=== PATIENT | female | born 1995 | race Two or more races ===

== ENCOUNTER 2023-08-01 20:20 | Emergency (ER) | payer OTHER ==
[~2023-08-01] VITALS: Ht 167.6 cm; Wt 54.4 kg
[2023-08-01] MEDS ORDERED: PRENATAL 19 CH1 EACH PO (20:29)
[2023-08-01] MEDS ORDERED: METOCLOPRAMIDE HCL 5 MG/ML VIAL IM STA (22:16)
[2023-08-01] MEDS ORDERED: PROMETHAZINE HCL 50 MG/ML AMPUL IM STA (22:17)
[2023-08-01] MEDS ORDERED: 0.9 % SODIUM CHLORIDE 1,000 ML IV STA (22:18)
[2023-08-01] MEDS ORDERED: FAMOtidine 10 MG/ML (4ML VIAL) IV PUSH STA (22:19)
[2023-08-02 00:14] LABS: PH,URINE 6.5 (5.0-8.0); URINE APPEARANCE Clear; URINE BILIRRUBIN Negative (NEGATIVE); URINE BLOOD Negative; URINE COLOR Yellow; URINE GLUCOSE Negative (NEGATIVE); URINE LEUKOCYTE Negative; URINE NITRATE Negative; URINE PROTEIN Negative (NEGATIVE)
[2023-08-02 00:18] LABS: URINE BACTERIA 166.2 uL (0.0-1933); URINE EPITHELIAL CELLS 9.7 uL (0.0-38.8); URINE RBC 3.7 uL (0.0-20.8); URINE WBC 13.1 uL (0.0-23.2)
[2023-08-02 00:19] LABS: HEMATOCRIT 37.8 % (36.0-45.00); HEMOGLOBIN 13.1 g/dL (12.0-15.00); MEAN CELL VOLUME 86.3 fL (80.00-100.00); MEAN CORPUSCULAR HEMOGLOBIN 29.9 pg (27.00-32.0); MEAN CORPUSCULAR HGB CONC 34.7 g/dl (32.0-36.0); PLATELET COUNT 252 K/uL (150-450); RED BLOOD COUNT 4.38 M/uL (4.00-6.00); RED CELL DISTRIBUTION WIDTH 13.8 % (11.5-14.5)
[2023-08-02 01:03] LABS: BILIRUBIN TOTAL 0.34 mg/dL (0.3-1.2); CALCIUM 9.9 mg/dL (8.5-10.1); CREATININE SERUM 0.53 mg/dL (0.55-1.02); GFR 139.44; GLOBULINA 3.7 G/DL (2.4-3.5); POTASSIUM 3.87 mEq/L (3.5-5.1); TOTAL PROTEIN 7.7 gm/dL (6.4-8.2)
[2023-08-02] MEDS ORDERED: ONDANSETRON ODT8 MG PO (03:12)
== END 2023-08-02 03:26 | disposition home or self-care (01) ==
LOC: ER 20:20
DX: O21.0 Mild hyperemesis gravidarum (principal); E86.0 Dehydration; Z3A.14 14 weeks gestation of pregnancy

== ENCOUNTER 2023-08-20 11:37 | Outpatient (CLI) | payer OTHER ==
[~2023-08-20 11:37] MED LIST: ONDANSETRON ODT8 MG PO; PRENATAL 19 CH1 EACH PO
== END 2023-08-20 11:39 | disposition home or self-care (01) ==
LOC: PRENATAL 11:37
PROVIDERS: ATTEND Obstetrics & Gynecology Maternal & Fetal Medicine
DX: Z76.1 Encounter for health supervision and care of foundling (principal)

== ENCOUNTER 2023-11-07 18:34 | Outpatient (CLI) | payer OTHER ==
[2023-11-07] MEDS ORDERED: CEFAZOLIN SODIUM 1,000 MG VIAL IV SCH (18:43)
[2023-11-07] MEDS ORDERED: TERBUTALINE SULFATE 1 MG/ML AMPUL SUBCUTANEO ONE (18:45)
[2023-11-07] MEDS ORDERED: RINGERS SOLUTION,LACTATED 1,000 ML IV SCH (18:45)
[2023-11-07 19:20] LABS: HEMATOCRIT 30.9 % (36.0-45.00); HEMOGLOBIN 10.8 g/dL (12.0-15.00); MEAN CELL VOLUME 87.1 fL (80.00-100.00); MEAN CORPUSCULAR HEMOGLOBIN 30.5 pg (27.00-32.0); PH,URINE 5.5 (5.0-8.0); PLATELET COUNT 223 K/uL (150-450); RED BLOOD COUNT 3.55 M/uL (4.00-6.00); RED CELL DISTRIBUTION WIDTH 12.9 % (11.5-14.5); URINE APPEARANCE Clear; URINE BILIRRUBIN Negative (NEGATIVE); URINE BLOOD Negative; URINE COLOR Yellow; URINE GLUCOSE Negative (NEGATIVE); URINE LEUKOCYTE Small; URINE NITRATE Negative; URINE PROTEIN Negative (NEGATIVE)
[2023-11-07 19:21] LABS: URINE BACTERIA 1637.9 uL (0.0-1933); URINE EPITHELIAL CELLS 34.3 uL (0.0-38.8); URINE RBC 2.2 uL (0.0-20.8); URINE WBC 80.8 uL (0.0-23.2)
== END 2023-11-08 23:10 | disposition home or self-care (01) ==
LOC: OBS/DEL 18:34
PROVIDERS: Obstetrics & Gynecology; ATTEND Obstetrics & Gynecology
DX: O26.893 Other specified pregnancy related conditions, third trimester (principal); R10.2 Pelvic and perineal pain; Z3A.28 28 weeks gestation of pregnancy

== ENCOUNTER 2023-12-12 21:39 | Outpatient (CLI) | payer OTHER ==
[2023-12-12] MEDS ORDERED: RINGERS SOLUTION,LACTATED 1,000 ML IV SCH (22:00)
[2023-12-12 22:28] LABS: HEMOGLOBIN 10.3 g/dL (12.0-15.00); MEAN CELL VOLUME 85.8 fL (80.00-100.00); MEAN CORPUSCULAR HEMOGLOBIN 29.5 pg (27.00-32.0); MEAN CORPUSCULAR HGB CONC 34.4 g/dl (32.0-36.0); PLATELET COUNT 210 K/uL (150-450); RED BLOOD COUNT 3.49 M/uL (4.00-6.00); RED CELL DISTRIBUTION WIDTH 12.4 % (11.5-14.5)
[2023-12-12 23:28] LABS: URINE APPEARANCE Clear; URINE BILIRRUBIN Negative (NEGATIVE); URINE BLOOD Negative; URINE COLOR Yellow; URINE GLUCOSE Negative (NEGATIVE); URINE KETONE Negative (NEGATIVE); URINE LEUKOCYTE Trace; URINE NITRATE Negative; URINE PROTEIN Negative (NEGATIVE)
[2023-12-12 23:31] LABS: URINE BACTERIA 219.1 uL (0.0-1933); URINE EPITHELIAL CELLS 12.3 uL (0.0-38.8); URINE RBC 3.3 uL (0.0-20.8); URINE WBC 18.9 uL (0.0-23.2)
[2023-12-12 23:38] LABS: URINE CAST 0.15 uL (0.0-1.40)
== END 2023-12-13 15:35 | disposition home or self-care (01) ==
LOC: OBS/DEL 21:39
PROVIDERS: Obstetrics & Gynecology; ATTEND Obstetrics & Gynecology
DX: O26.893 Other specified pregnancy related conditions, third trimester (principal); Z3A.33 33 weeks gestation of pregnancy; R10.2 Pelvic and perineal pain

== ENCOUNTER 2024-01-07 20:38 | Inpatient (IN) | payer OTHER ==
[~2024-01-07] VITALS: Ht 167.6 cm; Wt 2.3 kg
[2024-01-07 19:57] VITALS: BP 116/77
[2024-01-07] MEDS ORDERED: RINGERS SOLUTION,LACTATED 1,000 ML IV SCH (21:45)
[2024-01-07] MEDS ORDERED: MORPHINE SULFATE 4 MG/ML CARTRIDGE IV ONE (21:45)
[2024-01-07 22:01] LABS: URINE APPEARANCE Clear; URINE BILIRRUBIN Negative (NEGATIVE); URINE BLOOD Negative; URINE COLOR Yellow; URINE GLUCOSE Negative (NEGATIVE); URINE KETONE 15 (NEGATIVE); URINE LEUKOCYTE Negative; URINE NITRATE Negative; URINE PROTEIN Negative (NEGATIVE); URINE UROBILINOGEN 0.2 E.U./dl
[2024-01-07 22:04] LABS: URINE EPITHELIAL CELLS 7.7 uL (0.0-38.8); URINE WBC 13.9 uL (0.0-23.2)
[2024-01-07 22:05] LABS: HEMATOCRIT 31.4 % (36.0-45.00); HEMOGLOBIN 10.7 g/dL (12.0-15.00); MEAN CELL VOLUME 83.6 fL (80.00-100.00); MEAN CORPUSCULAR HEMOGLOBIN 28.4 pg (27.00-32.0); PLATELET COUNT 224 K/uL (150-450); RED BLOOD COUNT 3.75 M/uL (4.00-6.00); RED CELL DISTRIBUTION WIDTH 13.3 % (11.5-14.5)
[2024-01-07 22:07] LABS: URINE RBC 1.3 uL (0.0-20.8)
[2024-01-07 22:15] LABS: PARTIAL THROMBOPLASTIN TIME 27.3 SECONDS (22.0-34.0); PROTHROMBIN TIME 10.9 SECONDS (9.0-11.5)
[2024-01-07 22:16] LABS: CREATININE SERUM 0.45 mg/dL (0.55-1.02); GFR 167.13; POTASSIUM 3.57 mEq/L (3.5-5.1)
[2024-01-07 23:04] VITALS: BP 99/63
[2024-01-08 04:00] VITALS: BP 104/68
[2024-01-08 06:38] VITALS: BP 103/63; O2SAT 100
[2024-01-08 11:21] VITALS: BP 116/77
[2024-01-08 11:48] VITALS: BP 112/66; O2SAT 100
[2024-01-08 15:35] VITALS: BP 112/67
[2024-01-08] MEDS ORDERED: ERYTHROMYCIN BASE OPHT 1GM EACH TUBE OP ONE (16:12)
[2024-01-08] MEDS ORDERED: OXYTOCIN 10 UNITS/ML VIAL ONE (16:12)
[2024-01-08] MEDS ORDERED: CEFAZOLIN SODIUM 1,000 MG VIAL ONE (16:32)
[2024-01-08] MEDS ORDERED: OXYTOCIN 1,000 ML IV SCH (17:45)
[2024-01-08] MEDS ORDERED: MORPHINE SULFATE 4 MG/ML CARTRIDGE IV PRN (17:45)
[2024-01-08] MEDS ORDERED: RINGERS SOLUTION,LACTATED 1,000 ML IV SCH (17:45)
[2024-01-08] MEDS ORDERED: SIMETHICONE 125 MG CAPSULE PO SCH (18:00)
[2024-01-08 20:22] VITALS: BP 115/74
[2024-01-08 23:09] LABS: HEMATOCRIT 30.9 % (36.0-45.00); HEMOGLOBIN 10.8 g/dL (12.0-15.00); MEAN CORPUSCULAR HEMOGLOBIN 28.6 pg (27.00-32.0); MEAN CORPUSCULAR HGB CONC 34.9 g/dl (32.0-36.0); PLATELET COUNT 189 K/uL (150-450); RED BLOOD COUNT 3.76 M/uL (4.00-6.00); RED CELL DISTRIBUTION WIDTH 13.3 % (11.5-14.5)
[2024-01-09 02:15] VITALS: BP 107/67
[2024-01-09 06:18] VITALS: BP 100/80
[2024-01-09 09:00] VITALS: BP 109/75
[2024-01-09] MEDS ORDERED: DOCUSATE SODIUM 100MG CAP PO SCH (09:00)
[2024-01-09] MEDS ORDERED: IBUprofen 800 MG TABLET PO PRN (09:00)
[2024-01-09 17:00] VITALS: BP 133/79
[2024-01-09 20:00] VITALS: BP 115/74
[2024-01-09 22:00] VITALS: BP 115/67
[2024-01-10 00:20] VITALS: BP 108/67
[2024-01-10 01:50] VITALS: BP 114/71; O2SAT 100
[2024-01-10 05:59] VITALS: BP 108/72
[2024-01-10 09:59] VITALS: BP 113/77
[2024-01-10 16:46] VITALS: BP 116/77
[2024-01-11 02:04] VITALS: BP 111/76
[2024-01-11 08:00] VITALS: BP 113/80
== END 2024-01-11 14:02 | disposition home or self-care (01) | DRG 785 ==
LOC: OBS/DEL 20:38 → LDR 01-08 10:44 → OB/GYN 01-08 10:44 → OBS/DEL 01-08 10:44 → O/R 01-08 17:06 → OB/GYN 01-08 18:08
PROVIDERS: ADMIT Obstetrics & Gynecology; ATTEND Obstetrics & Gynecology
PROC: 0UB70ZZ Excision of Bilateral Fallopian Tubes, Open Approach (ICD-10-PCS; 2024-01-08)
PROC: 4A1HXCZ Monitoring of Products of Conception, Cardiac Rate, External Approach (ICD-10-PCS; 2024-01-08)
PROC: 10D00Z1 Extraction of Products of Conception, Low, Open Approach (ICD-10-PCS; principal; 2024-01-08 18:15)
DX: O34.211 Maternal care for low transverse scar from previous cesarean delivery (principal); Z3A.37 37 weeks gestation of pregnancy; Z37.0 Single live birth; Z20.822 Contact with and (suspected) exposure to COVID-19; Z30.2 Encounter for sterilization